=== PATIENT | female | born 1975 | race Two or more races ===

== ENCOUNTER 2024-05-28 14:22 | Emergency (ER) | payer MEDICAID, OTHER ==
[~2024-05-28] VITALS: Ht 165.1 cm; Wt 68.3 kg
[2024-05-28 15:45] VITALS: BP 138/90; PULSE 90; RESP 18; TEMP 97.8; O2SAT 98
[2024-05-28] MEDS ORDERED: AUG875T PO (15:47)
[2024-05-28] MEDS ORDERED: IBUP-1455 PO (15:47)
[2024-05-28] MEDS: TETANUS-DIPTH-ACEL PERTUSSIS 0.5ML SYR Tdap IM ONE (16:25)
[2024-05-28] MEDS: AMPICILLIN & SULBACTAM SODIUM 3 GM in SODIUM CHL 0.9% 100 ML IV ONE (17:10)
== END 2024-05-28 17:37 | disposition home or self-care (01) ==
LOC: ER 14:22 → EDBD 14:22 → ER 17:35
DX: S91.352A Open bite, left foot, initial encounter (principal); S91.351A Open bite, right foot, initial encounter; W54.0XXA Bitten by dog, initial encounter; Y93.89 Activity, other specified; Y92.69 Other specified industrial and construction area as the place of occurrence of the external cause; Y99.8 Other external cause status
CPT/HCPCS: 73630; 90471; 90715; 96365

== ENCOUNTER 2024-05-30 09:04 | Emergency (ER) | payer OTHER ==
[~2024-05-30] VITALS: Ht 165.1 cm; Wt 65.1 kg
[~2024-05-30 09:04] MED LIST: AUG875T PO; IBUP-1455 PO
[2024-05-30 09:43] VITALS: BP 138/93; PULSE 86; RESP 18; TEMP 97.5; O2SAT 97
== END 2024-05-30 10:08 | disposition home or self-care (01) ==
LOC: ER 09:04
DX: Z48.00 Encounter for change or removal of nonsurgical wound dressing (principal)